=== PATIENT | male | born 1980 | race Caucasian/White ===

== ENCOUNTER 2024-09-12 08:30 | Outpatient (CLI) | payer OTHER ==
[2024-09-12 09:15] VITALS: BP 137/88; O2SAT 98
[2024-09-12 10:25] VITALS: BP 131/91; O2SAT 98
[2024-09-12 10:40] VITALS: BP 124/86; O2SAT 98
[2024-09-12 10:55] VITALS: BP 123/81; O2SAT 96
== END 2024-09-12 08:40 | disposition home or self-care (01) ==
LOC: TOM 08:30
DX: N28.89 Other specified disorders of kidney and ureter (principal)